=== PATIENT | female | born 1965 | race Caucasian/White ===

== ENCOUNTER → 2021-03-10 13:36 | Outpatient (BNVA) | payer OTHER, SELFPAY | PROVIDERS: Visit Provider Internal Medicine | DX: T22.212A Burn of second degree of left forearm, initial encounter (principal); T23.202A Burn of second degree of left hand, unspecified site, initial encounter; T31.0 Burns involving less than 10% of body surface; L03.114 Cellulitis of left upper limb; X19.XXXA Contact with other heat and hot substances, initial encounter | CPT/HCPCS: 99203 ==

== ENCOUNTER → 2021-03-13 08:51 | Outpatient (BNVA) | payer OTHER, SELFPAY | PROVIDERS: Visit Provider Internal Medicine | DX: T22.212A Burn of second degree of left forearm, initial encounter (principal); L03.114 Cellulitis of left upper limb; X08.8XXA Exposure to other specified smoke, fire and flames, initial encounter | CPT/HCPCS: 99213 ==